=== PATIENT | male | born 1960 | race Caucasian/White ===

== ENCOUNTER → 2020-04-19 | Outpatient (CLI) | payer OTHER ==
[~2020-04-19] MED LIST: KEFLEX500 MG PO; NOHOMEMEDICATIONS; PERCOCET 5-3251 EACH PO
== END ==
LOC: CAT 14:41
PROVIDERS: ATTEND Nurse Practitioner
DX: I25.10 Atherosclerotic heart disease of native coronary artery without angina pectoris (principal); E78.00 Pure hypercholesterolemia, unspecified